=== PATIENT | female | born 1980 | race Caucasian/White ===

== ENCOUNTER 2021-09-21 12:06 | Emergency (ER) | payer OTHER, SELFPAY ==
--- NOTE | ~2021-09-21 | XR_ITS ---
XR knee RT 3V 09/21/2021 13:20 Indication: Right knee pain Procedure: 3 views right knee Comparison: No prior studies for comparison. Findings: There are surgical changes of ACL repair. There is anatomic alignment. No significant joint effusion. No acute fracture, subluxation or dislocation. Impression: 1: No acute bone or joint abnormality. Reviewed, dictated and finalized at location B. Impression: 1: No acute bone or joint abnormality.
[2021-09-21 12:08] VITALS: BP 141/90; PULSE 86; RESP 16; TEMP 36.9; O2SAT 100
--- NOTE | 2021-09-21 13:09 | ED.LOWEXIN ---
HPI - Extremity Injury (Lower) General Chief Complaint: Extremity Injury, Lower Stated Complaint: right knee injury Time Seen by Provider: 09/21/21 12:25 Source: patient Mode of arrival: EMS Limitations: no limitations History of Present Illness HPI Narrative: This is a 41 year old female that presents to the ER for right knee pain after an injury just prior to arrival. Reports she slipped on a strawberry and twisted the knee. Reports history of previous surgery on this knee. Reports decreased range of motion due to pain. Denies numbness. Related Data Home Medications Medication Instructions Recorded Confirmed No Home Medications 09/21/21 Allergies Allergy/AdvReac Type Severity Reaction Status Date / Time nut - unspecified Allergy Hives Verified 09/21/21 12:11 Review of Systems Review of Systems: CONSTITUTIONAL: Denies fever MUSCULOSKELETAL: Reports joint pain, and myalgia. NEUROLOGIC: Denies numbness All systems reviewed & are unremarkable except as noted in HPI and below PMFSH Past Medical History Medical History (Updated 09/21/21 @ 13:51 by Kesha Reyes PA-C) No active medical problems Social History Social History (Updated 09/21/21 @ 13:12 by Kesha Reyes PA-C) Substance use: never Exam Narrative: GENERAL: Well-appearing, well-nourished, and in no acute distress. HEAD: Normocephalic, atraumatic. EYES: EOMI. EXTREMITIES: Normal range of motion. No edema or obvious deformity. Normal DP pulse. Normal sensation SKIN: Warm, dry, no rash. NEURO: No focal deficits. Alert and oriented x3. PSYCH: Normal mood and affect Course Vital Signs Vital signs: Vital Signs Temperature 98.5 F 09/21/21 12:08 Pulse Rate 86 09/21/21 12:08 Respiratory Rate 16 09/21/21 12:08 Blood Pressure 141/90 H 09/21/21 12:08 Pulse Oximetry 100 09/21/21 12:08 Temperature 98.5 F 09/21/21 12:08 Pulse Rate 86 09/21/21 12:08 Respiratory Rate 16 09/21/21 12:08 Blood Pressure 141/90 H 09/21/21 12:08 Pulse Oximetry 100 09/21/21 12:08 MDM - Extremity Injury (Lower) MDM Narrative Medical decision making narrative: Patient presents to the ER for right knee pain after an injury today. Patient is neurovascularly intact. Right knee x-ray without acute osseous abnormalities. Patient placed in Ike wrap. She reports she already has a knee immobilizer and crutches at home. Encouraged to use these and have follow-up with her orthopedic doctor. She was given warnings to return to the ER Imaging Data Radiologist's impression: ITS Impressions Knee X-Ray 09/21/21 13:21 Impression: 1: No acute bone or joint abnormality. Critical Care Time Critical Care Time Critical Care Time: No Discharge Plan Discharge Clinical Impression: Acute internal derangement of knee Qualifiers: Laterality: right Qualified Code(s): M23.91 - Unspecified internal derangement of right knee Patient Disposition: Home, Self-Care Condition: Stable Instructions: Knee Sprain (ED) Additional Instructions: Return to the emergency department if you experience fever, redness and swelling of your leg, numbness, or any other symptoms that are concerning to you Wear knee immobilizer and use crutches. No weight on the affected leg. Ice and elevate extremity. Pain medication as needed and directed. Follow up with your orthopedics doctor for further care. Prescriptions: No Action No Home Medications Follow-up/Referrals: PHYSICIAN NOT ON STAFF,NONSTAFF [Primary Care Provider] - Stand Alone Forms: Work/School Release IP
[2021-09-21] MEDS: IBUPROFEN 600 MG TABLET PO (13:53)
== END 2021-09-21 14:01 | disposition home or self-care (01) ==
PROVIDERS: Emergency Provider Emergency Medicine
DX: M23.91 Unspecified internal derangement of right knee (principal); S89.91XA Unspecified injury of right lower leg, initial encounter; W18.40XA Slipping, tripping and stumbling without falling, unspecified, initial encounter
CPT/HCPCS: 73562; 99283; A9270